=== PATIENT | male | born 1950 | race Caucasian/White ===

== ENCOUNTER 2019-03-29 07:56 | Emergency (ER) | payer MEDICARE ==
[~2019-03-29] VITALS: Ht 172.7 cm; Wt 95.0 kg
[~2019-03-29 07:56] MED LIST: ASPI81TA52 PO; IBUP-24 PO; PANT-47 PO
[2019-03-29 08:41] LABS: BASOPHILS # (AUTO) 0.1 X10'3 (0-0.2); BASOPHILS % (AUTO) 0.6 % (0-1); EOSINOPHILS # (AUTO) 0.1 X10'3 (0-0.9); EOSINOPHILS % (AUTO) 1.1 % (0-6); HEMATOCRIT 42.7 % (42.0-52.0); HEMOGLOBIN 14.3 g/dl (14.0-17.9); LYMPHOCYTES # (AUTO) 2.7 X10'3 (1.1-4.8); LYMPHOCYTES % (AUTO) 29.8 % (21-51); MEAN CORPUSCULAR HEMOGLOBIN 29.4 PG (27.0-31.0); MEAN CORPUSCULAR HGB CONC 33.6 g/dL (33.0-36.5); MEAN CORPUSCULAR VOLUME 87.6 FL (78-98); MEAN PLATELET VOLUME 8.3 FL (7.4-10.4); MONOCYTES # (AUTO) 0.7 X10'3 (0-0.9); MONOCYTES % (AUTO) 8.1 % (2-12); NEUTROPHILS # (AUTO) 5.4 X10'3 (1.8-7.7); NEUTROPHILS % (AUTO) 60.4 % (42-75); PLATELET COUNT 176 X10'3 (140-440); RED BLOOD COUNT 4.87 X10'6 (4.70-6.10); RED CELL DISTRIBUTION WIDTH 15.4 % (11.5-14.5); WHITE BLOOD COUNT 8.9 X10'3 (4.5-11.0)
[2019-03-29 08:54] LABS: ALANINE AMINOTRANSFERASE 27 U/L (12-78); ALBUMIN/GLOBULIN RATIO 1.1 (1.1-1.5); ALKALINE PHOSPHATASE 67 IU/L (46-116); ANION GAP 12 (8-16); ASPARTATE AMINO TRANSFERASE 16 U/L (10-37); BILIRUBIN,TOTAL 0.2 MG/DL (0.1-1.0); BLOOD UREA NITROGEN 18 MG/DL (7-18); BUN/CREATININE RATIO 21.2 (5.4-32.0); CALCIUM 9.4 MG/DL (8.5-10.1); CHLORIDE 105 MMOL/L (99-107); CREATININE 0.85 MG/DL (0.60-1.10); GLUCOSE 109 MG/DL (70-104); POTASSIUM 4.4 MMOL/L (3.5-5.1); SODIUM 139 MMOL/L (135-145); TOTAL CARBON DIOXIDE 21.6 MMOL/L (24-32); TOTAL PROTEIN 7.7 G/DL (6.4-8.2); eGFR 89 ML/MIN
[2019-03-29] MEDS ORDERED: ketorolac trometh. 30mg/ml inj. IV ONE (09:05)
--- NOTE | 2019-03-29 09:27 | NUR ---
Pt. transferred to CT scan by tech via w/c.
--- NOTE | 2019-03-29 09:40 | NUR ---
pt returns from ct
[2019-03-29] MEDS ORDERED: ondansetron/PF 4mg/2ml inj IV ONE (10:15)
[2019-03-29] MEDS ORDERED: morphine 4 MG/ML inj SYRINge IV ONE (10:15)
[2019-03-29] MEDS ORDERED: HYDR-4353 PO (10:25)
[2019-03-29 10:26] VITALS: BP 158/84
== END 2019-03-29 10:38 | disposition home or self-care (01) ==
LOC: ER 07:57
DX: K40.90 Unilateral inguinal hernia, without obstruction or gangrene, not specified as recurrent (principal); C79.51 Secondary malignant neoplasm of bone; C80.1 Malignant (primary) neoplasm, unspecified; K21.9 Gastro-esophageal reflux disease without esophagitis; Z98.890 Other specified postprocedural states; Z88.6 Allergy status to analgesic agent; Z79.82 Long term (current) use of aspirin; Z79.899 Other long term (current) drug therapy
CPT/HCPCS: 36415; 72192; 80053; 85025; 85610; 96374; 96375; 99284; J1885; J2270; J2405

== ENCOUNTER 2019-04-04 06:34 | Day surgery (SDC) | payer MEDICARE ==
[~2019-04-04] VITALS: Ht 172.7 cm; Wt 94.0 kg
[2019-04-04] VITALS (17 sets, daily range): BP systolic 110–158; BP diastolic 73–90
[~2019-04-04 06:34] MED LIST changes: +HYDR-4353 PO
[2019-04-04] MEDS ORDERED: normal saline 1000ml 1,000 ML IV SCH (07:00)
[2019-04-04] MEDS ORDERED: ASPI-611 PO (07:10)
[2019-04-04] MEDS ORDERED: GEMF600T89 PO (07:10)
[2019-04-04] MEDS ORDERED: HYDR-3972 PO (07:10)
[2019-04-04] MEDS ORDERED: ATOR20TA PO (07:10)
[2019-04-04] MEDS ORDERED: PANT-47 PO (07:10)
[2019-04-04 07:56] LABS: BASOPHILS # (AUTO) 0.1 X10'3 (0-0.2); BASOPHILS % (AUTO) 0.9 % (0-1); EOSINOPHILS # (AUTO) 0.1 X10'3 (0-0.9); EOSINOPHILS % (AUTO) 1.3 % (0-6); HEMATOCRIT 40.2 % (42.0-52.0); HEMOGLOBIN 13.4 g/dl (14.0-17.9); LYMPHOCYTES # (AUTO) 2.5 X10'3 (1.1-4.8); LYMPHOCYTES % (AUTO) 30.1 % (21-51); MEAN CORPUSCULAR HEMOGLOBIN 29.6 PG (27.0-31.0); MEAN CORPUSCULAR HGB CONC 33.4 g/dL (33.0-36.5); MEAN CORPUSCULAR VOLUME 88.6 FL (78-98); MEAN PLATELET VOLUME 8.2 FL (7.4-10.4); MONOCYTES # (AUTO) 0.8 X10'3 (0-0.9); NEUTROPHILS % (AUTO) 58.7 % (42-75); PLATELET COUNT 161 X10'3 (140-440); RED BLOOD COUNT 4.54 X10'6 (4.70-6.10); RED CELL DISTRIBUTION WIDTH 15.7 % (11.5-14.5); WHITE BLOOD COUNT 8.5 X10'3 (4.5-11.0)
[2019-04-04 08:06] LABS: ALBUMIN 3.6 G/DL (3.4-5.0); ANION GAP 8 (8-16); BLOOD UREA NITROGEN 15 MG/DL (7-18); BUN/CREATININE RATIO 18.8 (5.4-32.0); CALCIUM 9.5 MG/DL (8.5-10.1); CHLORIDE 106 MMOL/L (99-107); GLUCOSE 99 MG/DL (70-104); POTASSIUM 4.2 MMOL/L (3.5-5.1); SODIUM 141 MMOL/L (135-145); eGFR > 90 ML/MIN
[2019-04-04] MEDS ORDERED: LIDOcaine 1% 30ml preserv. free vial SQ ONE (08:20)
[2019-04-04] MEDS ORDERED: midazolam 2 mg/2 ml injection IV PRN (08:20)
[2019-04-04] MEDS ORDERED: fentaNYL/PF 50MCG/1 ML 2ML syringe IV PRN (08:20)
[2019-04-04] MEDS ORDERED: fentaNYL/PF 50MCG/1 ML 2ML syringe ONE ×2 (08:24→09:02)
[2019-04-04] MEDS ORDERED: midazolam 2 mg/2 ml injection ONE ×2 (08:24→09:02)
[2019-04-04] MEDS ORDERED: LIDOcaine 1%/PF 5ML 10 MG/ML VIAL ONE (08:24)
== END 2019-04-04 10:50 | disposition home or self-care (01) ==
LOC: SSTAY O 06:34
PROVIDERS: ATTEND Radiology Diagnostic Radiology
DX: C41.4 Malignant neoplasm of pelvic bones, sacrum and coccyx (principal); R10.32 Left lower quadrant pain
CPT/HCPCS: 20225; 36415; 80048; 85025; 85610; 88341; J2250; J3010; 88173; 88305; 88342; 99152; 99153; J7030

== ENCOUNTER 2019-04-06 19:23 | Emergency (ER) | payer MEDICARE ==
[~2019-04-06] VITALS: Ht 172.7 cm; Wt 94.0 kg
[~2019-04-06 19:23] MED LIST changes: +ASPI-611 PO; -ASPI81TA52 PO; +ATOR20TA PO; +GEMF600T89 PO; +HYDR-3972 PO; -HYDR-4353 PO; -IBUP-24 PO
[2019-04-06] MEDS ORDERED: morphine 4 MG/ML inj SYRINge IV ONE ×2 (20:45→22:50)
[2019-04-06] MEDS ORDERED: ondansetron/PF 4mg/2ml inj IV ONE (20:45)
[2019-04-06] MEDS ORDERED: normal saline 1000ML IV soln IVB ONE (21:00)
[2019-04-06 21:25] LABS: BASOPHILS # (AUTO) 0.1 X10'3 (0-0.2); BASOPHILS % (AUTO) 0.6 % (0-1); EOSINOPHILS # (AUTO) 0.1 X10'3 (0-0.9); HEMATOCRIT 41.3 % (42.0-52.0); HEMOGLOBIN 13.7 g/dl (14.0-17.9); LYMPHOCYTES # (AUTO) 2.6 X10'3 (1.1-4.8); LYMPHOCYTES % (AUTO) 27.5 % (21-51); MEAN CORPUSCULAR HEMOGLOBIN 29.3 PG (27.0-31.0); MEAN CORPUSCULAR HGB CONC 33.3 g/dL (33.0-36.5); MEAN CORPUSCULAR VOLUME 88.1 FL (78-98); MEAN PLATELET VOLUME 8.5 FL (7.4-10.4); MONOCYTES # (AUTO) 0.8 X10'3 (0-0.9); MONOCYTES % (AUTO) 8.4 % (2-12); NEUTROPHILS # (AUTO) 5.8 X10'3 (1.8-7.7); NEUTROPHILS % (AUTO) 62.5 % (42-75); PLATELET COUNT 188 X10'3 (140-440); RED BLOOD COUNT 4.69 X10'6 (4.70-6.10); RED CELL DISTRIBUTION WIDTH 15.5 % (11.5-14.5); WHITE BLOOD COUNT 9.4 X10'3 (4.5-11.0)
[2019-04-06 21:34] LABS: ALANINE AMINOTRANSFERASE 27 U/L (12-78); ALBUMIN 3.6 G/DL (3.4-5.0); ALBUMIN/GLOBULIN RATIO 0.9 (1.1-1.5); ALKALINE PHOSPHATASE 77 IU/L (46-116); ANION GAP 10 (8-16); ASPARTATE AMINO TRANSFERASE 14 U/L (10-37); BILIRUBIN,TOTAL 0.3 MG/DL (0.1-1.0); BLOOD UREA NITROGEN 17 MG/DL (7-18); BUN/CREATININE RATIO 18.5 (5.4-32.0); CALCIUM 9.2 MG/DL (8.5-10.1); CHLORIDE 104 MMOL/L (99-107); CREATININE 0.92 MG/DL (0.60-1.10); GLUCOSE 126 MG/DL (70-104); POTASSIUM 4.1 MMOL/L (3.5-5.1); SODIUM 140 MMOL/L (135-145); TOTAL PROTEIN 7.5 G/DL (6.4-8.2); eGFR 82 ML/MIN
[2019-04-06 23:47] VITALS: BP 154/72
== END 2019-04-06 23:49 | disposition home or self-care (01) ==
LOC: ER 19:24
DX: R10.32 Left lower quadrant pain (principal); K21.9 Gastro-esophageal reflux disease without esophagitis; Z98.890 Other specified postprocedural states; Z79.82 Long term (current) use of aspirin; Z79.899 Other long term (current) drug therapy
CPT/HCPCS: 36415; 74176; 80053; 85025; 85610; 96374; 96375; 96376; 99284; J2270; J2405; J7030